=== PATIENT | male | born 1940 | race Caucasian/White ===

== ENCOUNTER 2016-11-16 12:39 | Observation (INO) | payer MEDICARE ==
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
[2016-11-16] MEDS ORDERED: LORazepam 2 MG/ML SYRINGE IV STA (14:03)
[2016-11-16 15:13] LABS: Anisocytosis Slight; Aty Lym Flag Slight; CH 32.6; HCT 29.4 % (39.0-53.0); HDW 3.16; HGB 9.3 gm/dL (13.0-17.5); Hypochromasia Moderate; MCH 33.4 pg (25.0-35.0); MCHC 31.5 g/dL (31.0-37.0); Macrocytosis Marked; Mean Platelet Volume 7.6; RBC 2.78 m/uL (4.30-5.90); RDW 17.6 % (11.5-15.5); WBC 10.5 k/uL (3.8-10.6); WBC (Perox) 10.75
[2016-11-16 15:19] LABS: INR 1.2 (<1.2); Prothrombin Time 11.8 sec (9.0-12.0)
[2016-11-16 15:21] LABS: Calcium 9.5 mg/dL (8.4-10.2); Magnesium 2.1 mg/dL (1.6-2.3); Phosphorous 4.8 mg/dL (2.5-4.5); Potassium 4.1 mmol/L (3.5-5.1); Total Bilirubin 0.3 mg/dL (0.2-1.3); Total Protein 5.7 g/dL (6.3-8.2)
[2016-11-16] MEDS: SODIUM CHLORIDE 0.9% 1,000 ML IV STA ×2 (15:21→19:49)
[2016-11-16 15:34] LABS: Add Differential Manual Differential
[2016-11-16 15:39] LABS: Manual Review Performed; Nucleated Red Blood Cells 0 /100 WBC (0-0); Polychromasia Present; Total Cells Counted 100
[2016-11-16 15:43] LABS: Creatine Kinase 24 U/L (55-170)
[2016-11-16] MEDS ORDERED: DIAZEPAM 5 MG/ML 2 ML SYRINGE IVP PRN (15:55)
[2016-11-16] MEDS ORDERED: SODIUM CHLORIDE 0.9% 1,000 ML IV ONE (15:55)
[2016-11-16] MEDS ORDERED: DIAZEPAM 5 MG/ML 2 ML SYRINGE IVP STA (15:55)
[2016-11-16 15:56] LABS: Creatine Kinase MB 1.2 ng/mL (0.0-2.4); Troponin I <0.012 ng/mL (0.000-0.034)
[2016-11-16 21:20] LABS: Glucose,Whole Blood 95 mg/dL (75-99)
[2016-11-16 22:44] LABS: Amorphous Sediment,Urine Rare /hpf; Appearance,Urine Clear (Clear); Bacteria,Urine Moderate /hpf; Bilirubin,Urine Negative (Negative); Glucose,Urine (UA) Negative (Negative); Granular Casts,Urine 4 /lpf (0); Ketones,Urine Negative (Negative); Leukocyte Esterase,Urine Trace (Negative); Nitrite,Urine Negative (Negative); PH, Urine 5.5 (5.0-8.0); Particle Count 6623; Protein,Urine 2+ (Negative); Specific Gravity,Urine 1.016 (1.001-1.035); Squamous Epithelial Cell,Urine <1 /hpf (0-4); UA Billing (MACRO vs. MICRO) MICRO; Urobilinogen,Urine <2.0 mg/dL (<2.0); WBC,Urine 3 /hpf (0-5)
[2016-11-16] MEDS ORDERED: MIDODRINE 5 MG TAB PO PRN (23:45)
[2016-11-17 07:39] LABS: Glucose,Whole Blood 67 mg/dL (75-99)
[2016-11-17 08:00] LABS: Glucose,Whole Blood 87 mg/dL (75-99)
[2016-11-17 08:39] VITALS: BMI 27.3
[2016-11-17] MEDS ORDERED: GABAPENTIN 300 MG CAP PO SCH (09:00)
[2016-11-17] MEDS ORDERED: ENOXAPARIN 40 MG/0.4 ML SYRINGE SQ SCH (09:00)
[2016-11-17] MEDS: PANTOPRAZOLE 40 MG TABLET PO SCH (09:32)
[2016-11-17] MEDS: ASPIRIN 81 MG CHEW PO SCH (09:32)
[2016-11-17] MEDS: ENOXAPARIN 30 MG/0.3 ML SYRINGE SQ SCH (09:32)
[2016-11-17] MEDS: ISOSORBIDE MONONITRATE ER 30 MG TAB.ER.24H PO SCH (09:32)
[2016-11-17] MEDS: CLOPIDOGREL 75 MG TAB PO SCH (09:32)
[2016-11-17 09:34] LABS: Calcium 9.2 mg/dL (8.4-10.2); Potassium 4.9 mmol/L (3.5-5.1); Total Bilirubin 0.3 mg/dL (0.2-1.3); Total Protein 5.3 g/dL (6.3-8.2)
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
[2016-11-17 10:40] LABS: Anisocytosis Slight; Aty Lym Flag Slight; CH 32.7; CHCM 31.5; HCT 28.2 % (39.0-53.0); HDW 3.12; HGB 9.3 gm/dL (13.0-17.5); Hypochromasia Slight; MCH 34.4 pg (25.0-35.0); MCHC 32.9 g/dL (31.0-37.0); MCV 104.4 fL (80.0-100.0); Macrocytosis Moderate; RDW 17.8 % (11.5-15.5); WBC 10.2 k/uL (3.8-10.6); WBC (Perox) 10.45
[2016-11-17 11:30] LABS: Add Differential Manual Differential
[2016-11-17 11:44] LABS: Manual Review Performed; Nucleated Red Blood Cells 0 /100 WBC (0-0); Total Cells Counted 100
[2016-11-17] MEDS ORDERED: NON-FORMULARY DRUG (Ubidecarenone [Co Q-10] 400 MG) PO SCH (12:00)
[2016-11-17] MEDS ORDERED: PRASTERONE 50 MG PO SCH (12:00)
[2016-11-17 12:09] LABS: Glucose,Whole Blood 121 mg/dL (75-99)
[2016-11-17] MEDS: CHOLECALCIFEROL 1,000 UNIT TAB PO SCH (12:55)
[2016-11-17] MEDS ORDERED: DARBEPOETIN ALFA 40 MCG/0.4 ML SYRINGE SQ SCH (14:00)
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
[2016-11-17 14:47] LABS: % Iron Saturation 12.2 % (20-50)
[2016-11-17] MEDS ORDERED: HYDROcodone/APAP 10-325MG 1 EACH TAB PO PRN (16:49)
[2016-11-17] MEDS: PRAVASTATIN SODIUM 40 MG TAB PO SCH (17:01)
[2016-11-17 17:52] LABS: Glucose,Whole Blood 130 mg/dL (75-99)
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
[2016-11-17 21:12] LABS: Glucose,Whole Blood 87 mg/dL (75-99)
[2016-11-17] MEDS: NEBIVOLOL 5 MG TAB PO SCH (21:46)
[2016-11-17] MEDS: NIACIN TR 500 MG CAPSULE.ER PO SCH (21:46)
[2016-11-17] MEDS: SERTRALINE 100 MG TAB PO SCH (21:46)
[2016-11-18 03:05] LABS: Glucose,Whole Blood 59 mg/dL (75-99)
[2016-11-18 03:32] LABS: Glucose,Whole Blood 80 mg/dL (75-99)
[2016-11-18 03:50] LABS: Glucose,Whole Blood 93 mg/dL (75-99)
[2016-11-18 07:27] LABS: Glucose,Whole Blood 84 mg/dL (75-99)
[2016-11-18 09:14] LABS: Hepatitis B Surface Ag Index 0.06
[2016-11-18 09:32] LABS: Hepatitis B Surface Antibody Negative (Negative)
[2016-11-18] MEDS: ASPIRIN 81 MG CHEW PO SCH (10:06)
[2016-11-18] MEDS: ENOXAPARIN 30 MG/0.3 ML SYRINGE SQ SCH (10:06)
[2016-11-18] MEDS: ISOSORBIDE MONONITRATE ER 30 MG TAB.ER.24H PO SCH (10:07)
[2016-11-18] MEDS: PANTOPRAZOLE 40 MG TABLET PO SCH (10:07)
[2016-11-18] MEDS: CLOPIDOGREL 75 MG TAB PO SCH (10:08)
--- NOTE | 2016-11-18 11:34 | P.PN ---
Subjective Patient seen in follow-up for end-stage renal disease. He is maintained on hemodialysis on a Wednesday schedule via right chest permacath. He has a maturing right upper extremity AV fistula. Patient presented with tremors. Patient is still quite confused. He is currently undergoing hemodialysis. Denies chest pain or shortness of breath. Vital signs are stable. General: The patient appeared well nourished and normally developed. HEENT: Head exam is unremarkable. Neck is without jugular venous distension. LUNGS: Lungs are clear to auscultation and percussion. Breath sounds decreased. HEART: Rate and Rhythm are regular. First and second heart sounds normal. No murmurs, rubs or gallops. ABDOMEN: Abdominal exam reveals normal bowel sounds. Non-tender and non- distended. No evidence of peritonitis. EXTREMITITES: No clubbing, cyanosis, or edema. Objective - Vital Signs Vital signs: Vital Signs Temp 97.7 F 11/18/16 07:00 Pulse 89 11/18/16 07:00 Resp 16 11/18/16 07:00 BP 109/53 11/18/16 07:00 Pulse Ox 92 L 11/18/16 07:00 Intake & Output 11/17/16 11/18/16 11/18/16 18:59 06:59 18:59 Intake Total 240 Output Total 300 Balance -300 240 Weight 81.647 kg Intake: Oral 240 Output: Urine 300 Other: Voiding Method Urinal # Voids 1 # Bowel Movements 1 - Labs CBC & Chem 7: 11/17/16 08:27 11/17/16 08:27 Labs: Abnormal Lab Results - Last 24 Hours (Table) 11/17/16 11/17/16 11/17/16 Range/Units 08:27 08:30 11:52 Neutrophils # (Manual) 7.8 H (1.3-7.7) k/uL Lymphocytes # (Manual) 0.8 L (1.0-4.8) k/uL POC Glucose (mg/dL) 121 H (75-99) mg/dL Iron 25 L (49-181) ug/dL TIBC 205 L (261-462) ug/dL % Saturation 12.2 L (20-50) % 11/17/16 11/18/16 Range/Units 17:20 03:04 Neutrophils # (Manual) (1.3-7.7) k/uL Lymphocytes # (Manual) (1.0-4.8) k/uL POC Glucose (mg/dL) 130 H 59 L (75-99) mg/dL Iron (49-181) ug/dL TIBC (261-462) ug/dL % Saturation (20-50) % Microbiology - Last 24 Hours (Table) 11/16/16 14:50 Blood Culture - Preliminary Blood No Growth after 24 hours 11/16/16 21:19 Urine Culture - Preliminary Urine,Clean Catch Assessment and Plan Plan: Assessment: #1. End-stage renal disease maintained on hemodialysis on a Wednesday schedule via right chest permacath. He has a right upper extremity AV fistula which is currently maturing. #2. Tremors. Possibly related to Neurontin. Which has been discontinued. #3. Diabetes mellitus. #4. Anemia of chronic kidney disease. Iron deficiency noted. Plan: Hemodialysis today with goal 2-3 L ultrafiltration. Ferrlicit 125 mg IV daily for 3 days. First dose today. Maintain Aranesp. Neurology following. Follow-up EEG and CAT scan results.
[2016-11-18 11:56] LABS: Glucose,Whole Blood 79 mg/dL (75-99)
[2016-11-18] MEDS: CHOLECALCIFEROL 1,000 UNIT TAB PO SCH (12:08)
--- NOTE | 2016-11-18 12:09 | CONS ---
DATE OF SERVICE: 11/17/2016 REASON FOR CONSULTATION: 1. Urinary tract infection. 2. Lumbar spine wound. HISTORY OF PRESENT ILLNESS: The patient is a 75 year old male with past medical history significant for a surgery of his lumbosacral spine at the [facility]. The patient did have slight dehiscence of the wound for which the patient was taken back to the OR and did have restitching of the wound. However, wound opened up again and hence the patient is currently being treated with wound VAC. Per the , there was no evidence of any infection and the patient has not been on any antibiotic therapy. The patient also having problems with renal failure for which the patient was started on hemodialysis. The patient has been sent to the [facility] ER from dialysis. Apparently the patient was having tremor. At that time, the patient was unable to sit still. The patient also noticed to have some low blood pressure and fatigue but no high grade fever,rigors or chills. With these symptoms, the patient was evaluated by the ER physician. The patient did not have any fever since the patient has been admitted to the hospital and the patient did have a normal white count. The patient has been complaining of burning of urine. Though even he is a dialysis patient, however, I mentioned that he is still being urinating about 2 to 3 L per shift. The patient did have a UA requested. He was started on Rocephin. I was asked to see the patient for further information regarding antibiotic therapy as well as wound to the sacral area. The patient denies any significant pain to the sacral wound area. The patient denies significant chest pain, no shortness of breath. No cough. No abdominal pain or any diarrhea. Review of systems is positive for weakness but no fever. EYES: No complaint. ENT: No complaint. Respiratory: No complaint. Cardiovascular: No complaint. Genitourinary: As per HPI. Gastrointestinal: No complaint. Musculoskeletal: As per HPI. Integumentary: No complaint. Psychological: No complaint. Endocrine: No complaint. Neurological: as per HPI. Past medical history significant for end stage renal disease, on dialysis, diabetes mellitus. 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 Past surgical history: Back surgery, heart catheterization and stent placement. Hernia repair. Bilateral knee replacement. SOCIAL HISTORY: No history of smoking, drinking or drug use. FAMILY HISTORY: No pertinent findings were noticed. ALLERGIES: noted. Medications currently include the patient is on: 1. [place]. 2. Aspirin. 3. Rocephin. 4. Vitamin D3. 5. Plavix. 6. Valium. 7. Lovenox. 8. Glucotrol. 9. Imdur. 11. Protonix. 12. Pravachol. 13. Zoloft. On examination, blood pressure is 129/54 with a pulse of 75. Temperature 97.5. He is 97% on room air. General description is an elderly male lying in bed in no distress. No tachypnea or accessory muscles of respiration use. HEENT: Examination shows slight pallor. No scleral icterus. Oral mucous membranes dry. NECK: Trachea is central. No thyromegaly. LUNGS: Unlabored breathing. Clear to auscultation anteriorly. No wheeze or crackles. HEART: S1, S2 regular rate and rhythm. ABDOMEN: Soft, no tenderness. No guarding or rigidity. EXTREMITIES: No edema of the feet. SKIN: No rash or mass palpable. MUSCULOSKELETAL: The patient did have a lumbar spine wound. however,the wound base looks clean with no evidence of any slough tissue. No significant surrounding erythema or any drainage. NEUROLOGICALLY: The patient is awake, alert and oriented times three. Mood and affect normal. LABS: Hemoglobin 11.3, white count 10.2 with a BUN 57, creatinine 6.29. Electrolytes have been normal. Urine with trace leukocyte esterase with moderate bacteremia. Blood and urine cultures currently pending. DIAGNOSTIC IMPRESSION AND PLAN: 1. The patient was admitted to the hospital for uncontrolled tremor while the patient was on dialysis. The patient did have actually hemodialysis after made a significant amount of urine with some burning though urine not significantly positive. Underlying mild urinary tract infection not entirely excluded. Likely from enteric gram negative pathogen. 2. Patient with lumbar spine wound, postsurgical. Clinically no evidence of cellulitis. PLAN: 1. Rocephin 1 gm IV piggyback to continue, while waiting for cultures to finalize. 2. Wound VAC to the lumbar spine wound with black foam continuous pressure wound 125mmhg to be changed Wednesday, and Wednesday. 3. We will follow up on his clinical condition and cultures to further adjust medications if needed. Thank you for this consultation. We will follow this patient along with you. JUAN
--- NOTE | 2016-11-18 12:40 | PN ---
SUBJECTIVE: This 75 year old white male with tremor was found to have UTI with urosepsis. He has been seen by neurologist, was started on Rocephin through the IV for urosepsis. He has been seen by Dr. Beck for end stage renal disease as well as Dr. Monterroso. Dr. Monterroso's diagosis is new onset tremors and myoclonus. He recommended hemodialysis, stopping Neurontin. Much better off Neurontin with jerking being improved, possibly due to renal failure. EEG was done and is pending. Vital signs are exmained. IV antibiotics have been started . Lungs are clear. Cardiovascular: S1, S2. PSYCH: Fair mood and affect. ASSESSMENT AND PLAN: 1. Tremors possibly due to Neurontin. 2. Diabetes mellitus and ( ) disease. 3. End stage renal disease, Wednesday, Wednesday, Wednesday, continue with dialysis. 4. Start Aranesp. 5. Neurontin has been discontinued. 6. Follow up in the next 24 to 48 hours. [facility]
[2016-11-18] MEDS ORDERED: ACETAMINOPHEN TAB 325 MG TAB PO PRN (15:36)
[2016-11-18] MEDS ORDERED: ACETAMINOPHEN TAB 500 MG TAB PO STA (15:36)
--- NOTE | 2016-11-18 16:11 | CT ---
EXAMINATION TYPE: CT brain wo con DATE OF EXAM: 11/18/2016 COMPARISON: NONE HISTORY: weakness, episodes of tremors and confusion CT DLP: 1012.7 mGycm Automated exposure control for dose reduction was used. FINDINGS: There are generalized changes of sulcal prominence and ventriculomegaly, compatible with atrophic jeni nge. There is diffuse periventricular white matter lucency, compatible with chronic white matter isch emic change. There is no acute focal lesion, mass effect or midline shift identified. I do not see ev idence of intracranial blood. There is mild mucoperiosteal thickening involving the ethmoid sinuses. Remainder of the paranasal sin uses and mastoids are clear. IMPRESSION: 1. NO ACUTE INTRACRANIAL ABNORMALITY. 2. ATROPHIC CHANGE. 3. CHRONIC WHITE MATTER ISCHEMIC CHANGE. 4. 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
[2016-11-18 16:56] LABS: Glucose,Whole Blood 185 mg/dL (75-99)
[2016-11-18] MEDS: PRAVASTATIN SODIUM 40 MG TAB PO SCH (17:49)
--- NOTE | 2016-11-18 17:55 | PN ---
DATE OF SERVICE: 11/18/2016 REASON FOR FOLLOWUP: UTI and a lumbar wound. INTERVAL HISTORY: The patient is afebrile. He is breathing comfortably. Still complaining of some urinary frequency, but no burning. No suprapubic or flank pain. Denies significant chest pain or shortness of breath or cough. On examination, blood pressure is 109/53 with a pulse of 89, temperature 97.7. He is 92% on room air. General description is an elderly male lying in bed in no distress. RESPIRATORY SYSTEM: Unlabored breathing. Clear to auscultation anteriorly. HEART: S1, S2. Regular rate and rhythm. ABDOMEN: Soft. No tenderness. Lumbar wound currently covered with a wound V.A.C. LABS: Hemoglobin 9.3 with a white count of 10.2. Cultures currently pending. DIAGNOSTIC IMPRESSION AND PLAN: 1. Patient with some urinary burning and frequency with concern about possible urinary tract infection. Currently covered with Rocephin. That will be continued while waiting for the culture to finalize. 2. Patient with lumbar wound, post surgical. Continue with the wound V.A.C. Family present at the bedside. Their questions were answered. JUAN
--- NOTE | 2016-11-18 19:46 | P.PN ---
Subjective This patient is a 75-year-old right-handed white male who was seen in neurology consultation yesterday for new onset of tremors and myoclonus. Patient has a history of end-stage renal disease and is undergoing hemodialysis 3 days a week. He did have hemodialysis today and his serum creatinine is 6.29. He is being followed by nephrology. Patient was having new onset of tremors felt to be secondary to possible use of Neurontin. Neurontin was discontinued yesterday. He still has some myoclonic-like twitching for which she is going to be further evaluated with a routine EEG tomorrow morning. He was sent for a computed tomography scan of the brain which reveals no evidence of acute stroke. There was chronic white matter ischemic changes and atrophy noted. Patient apparently seems to be doing better according to his in terms of the severity and degree of tremors. Once again his neurological examination yesterday indicated more of a mild clonus possibly due to his chronic end-stage renal disease and severe uropathy. Patient states that he has been noticing less myoclonic jerks and tremors today. He still does occasionally have a few of them. We will await review of his EEG which is planned to be done tomorrow morning and will give further recommendations. He does not demonstrate evidence of flapping tremors on examination yesterday or today. His mental status remains relatively stable. The patient does show evidence of fever today and has a temperature of 100.6. He is being followed by infectious disease. He does have mild urinary tract infection and is being placed on Rocephin for treatment. Patient is running a temperature today of 100.6. We will await further recommendations from infectious disease. He does have history of multiple back surgeries and apparently his wound is healed over well. We will await any further recommendations from infectious disease in regards to his fever noted today. His overall prognosis at this time remains guarded. We will continue close neurological follow-up with this patient during this admission. Objective - Vital Signs Vital signs: Vital Signs Temp 100.6 F H 11/18/16 15:00 Pulse 82 11/18/16 15:00 Resp 16 11/18/16 15:00 BP 105/58 11/18/16 15:00 Pulse Ox 95 11/18/16 15:00 Intake & Output 11/17/16 11/18/16 11/18/16 18:59 06:59 18:59 Intake Total 480 Output Total 300 Balance -300 480 Weight 81.647 kg Intake: Oral 480 Output: Urine 300 Other: Voiding Method Urinal Urinal # Voids 1 1 # Bowel Movements 1 0 - Exam Physical examination: PHYSICAL EXAMINATION: Patient is resting comfortably in bed. VITAL SIGNS: Blood pressure is [105/58]. Heart rate is [82]. Respiration is [16] . Temperature is [100.6]. HEENT: Head is atraumatic, neck is supple, there were no carotid bruits. CHEST: Lungs are clear to auscultation and percussion. CARDIAC: S1, S2 normal rate and rhythm. There is no murmur. ABDOMEN: Soft and nontender. Bowel sounds are present. EXTREMITIES: There is no pedal edema. Peripheral pulses are present. Neurological examination: Patient's neurological examination is unchanged from yesterday. - Labs CBC & Chem 7: 11/17/16 08:27 11/17/16 08:27 Labs: Abnormal Lab Results - Last 24 Hours (Table) 11/17/16 11/18/16 11/18/16 Range/Units 17:20 03:04 16:52 POC Glucose (mg/dL) 130 H 59 L 185 H (75-99) mg/dL Microbiology - Last 24 Hours (Table) 11/16/16 14:50 Blood Culture - Preliminary Blood No Growth after 48 hours 11/16/16 21:19 Urine Culture - Final Urine,Clean Catch Assessment and Plan (1) Myoclonus Status: Acute Code(s): G25.3 - MYOCLONUS (2) End stage renal disease Status: Acute Code(s): N18.6 - END STAGE RENAL DISEASE (3) Tremor Status: Acute Code(s): R25.1 - TREMOR, UNSPECIFIED Plan: This patient is a 75-year-old male who is being evaluated for symptoms of new onset tremors and myoclonus. Patient is scheduled to undergo EEG tomorrow morning which will be reviewed. He was sent for a computed tomography scan of the brain today which reveals no acute intracranial abnormality. There was some cortical atrophy and white matter ischemic changes noted. We reviewed the results of the CAT scan with the patient today. He did undergo hemodialysis today for end-stage renal disease. His last creatinine level was 6.29. We will continue close neurological follow-up in this patient. Doubt that he is having seizures but rather likely has some degree of myoclonus. We will review his EEG tomorrow and we'll give further recommendations. He is running a low- grade temperature today and should be followed up by infectious disease. He is currently on IV Rocephin for possible urinary tract infection. He also has a wound VAC for his recent back surgery which apparently remained stable. Continue close monitoring of his overall neurological status during this admission. His overall prognosis at this time remains guarded.
[2016-11-18 21:21] LABS: Glucose,Whole Blood 85 mg/dL (75-99)
[2016-11-18] MEDS: NIACIN TR 500 MG CAPSULE.ER PO SCH (21:48)
[2016-11-18] MEDS: SERTRALINE 100 MG TAB PO SCH (21:48)
[2016-11-18] MEDS: NEBIVOLOL 5 MG TAB PO SCH (21:48)
[2016-11-19 01:53] LABS: Glucose,Whole Blood 46 mg/dL (75-99)
[2016-11-19 02:07] LABS: Glucose,Whole Blood 60 mg/dL (75-99)
[2016-11-19 02:22] LABS: Glucose,Whole Blood 78 mg/dL (75-99)
[2016-11-19 04:54] LABS: Glucose,Whole Blood 104 mg/dL (75-99)
--- NOTE | 2016-11-19 07:50 | PN ---
SUBJECTIVE: This is a white male who was admitted to the hospital with tremors and confusion. He was found to have a UTI. He was started on IV Rocephin. He has also had a CAT scan of the brain today, which showed no strokes. No mass effect. Dr. Beck has got the patient on dialysis. He is improving in his tremor. His confusion is improving. Off Neurontin. CARDIOVASCULAR: S1 and S2. LUNGS: Clear. GI: Soft. HEMATOLOGY: Negative Homans. Hemoglobin is 9.3. BUN is 57. Creatinine is 6.29. Labs were reviewed. ASSESSMENT: 1. End-stage renal disease. 2. Tremor secondary to Neurontin ( ). 3. Urinary tract infection. 4. Diabetes mellitus. 5. Anemia. 6. Chronic kidney disease. Dialysis will be done today. ( ) IV for 3 days. Maintain Aranesp. EEG will be reviewed. Possible discharge home tomorrow ( ) tremors greatly improved with dialysis and treatment of UTI and being off Neurontin. MTDD
[2016-11-19] MEDS: ENOXAPARIN 30 MG/0.3 ML SYRINGE SQ SCH (08:27)
[2016-11-19] MEDS: CLOPIDOGREL 75 MG TAB PO SCH (08:27)
[2016-11-19] MEDS: ASPIRIN 81 MG CHEW PO SCH (08:27)
[2016-11-19] MEDS: ISOSORBIDE MONONITRATE ER 30 MG TAB.ER.24H PO SCH (08:28)
[2016-11-19] MEDS: PANTOPRAZOLE 40 MG TABLET PO SCH (08:28)
[2016-11-19 08:31] LABS: Glucose,Whole Blood 72 mg/dL (75-99)
[2016-11-19 09:22] LABS: Glucose,Whole Blood 121 mg/dL (75-99)
[2016-11-19] MEDS: SODIUM FERRIC GLUCONAT-SUCROSE 125 MG in SODIUM CHLORIDE 0.9% 100 ML IVPB SCH (09:37)
--- NOTE | 2016-11-19 10:27 | P.PN ---
Subjective Patient seen in follow-up for end-stage renal disease. He is maintained on hemodialysis on a Wednesday schedule via right chest permacath. He has a maturing right upper extremity AV fistula. Patient presented with tremors. Patient is still quite confused. Denies chest pain or shortness of breath. No active complaints at this time. Vital signs are stable. General: The patient appeared well nourished and normally developed. HEENT: Head exam is unremarkable. Neck is without jugular venous distension. LUNGS: Lungs are clear to auscultation and percussion. Breath sounds decreased. HEART: Rate and Rhythm are regular. First and second heart sounds normal. No murmurs, rubs or gallops. ABDOMEN: Abdominal exam reveals normal bowel sounds. Non-tender and non- distended. No evidence of peritonitis. EXTREMITITES: No clubbing, cyanosis, or edema. Objective - Vital Signs Vital signs: Vital Signs Temp 98.4 F 11/19/16 07:00 Pulse 84 11/19/16 07:00 Resp 18 11/19/16 07:00 BP 110/67 11/19/16 07:00 Pulse Ox 98 11/19/16 07:00 Intake & Output 11/18/16 11/19/16 11/19/16 18:59 06:59 18:59 Intake Total 530 Output Total 150 Balance 530 -150 Weight 83 kg Intake: Intake, IV Titration 50 Amount cefTRIAXone 1,000 mg In 50 Sodium Chloride 0.9% 50 ml @ 100 mls/hr IVPB Q24H [facility] Rx#:[id number] Oral 480 Output: Urine 150 Other: Voiding Method Urinal Urinal # Voids 1 1 # Bowel Movements 1 - Labs CBC & Chem 7: 11/17/16 08:27 11/17/16 08:27 Labs: Abnormal Lab Results - Last 24 Hours (Table) 11/18/16 11/19/16 11/19/16 Range/Units 16:52 01:49 02:04 POC Glucose (mg/dL) 185 H 46 L 60 L (75-99) mg/dL 11/19/16 11/19/16 11/19/16 Range/Units 04:51 08:26 09:21 POC Glucose (mg/dL) 104 H 72 L 121 H (75-99) mg/dL Microbiology - Last 24 Hours (Table) 11/16/16 14:50 Blood Culture - Preliminary Blood No Growth after 48 hours 11/16/16 21:19 Urine Culture - Final Urine,Clean Catch Assessment and Plan Plan: Assessment: #1. End-stage renal disease maintained on hemodialysis on a Wednesday schedule via right chest permacath. He has a right upper extremity AV fistula which is currently maturing. #2. Tremors. Possibly related to Neurontin, which has been discontinued. #3. Diabetes mellitus. #4. Anemia of chronic kidney disease. Iron deficiency noted. #5. Low-grade fever. Concern for UTI. Patient also has a lumbar wound with a wound VAC in place. Plan: Hemodialysis tomorrow with goal 2-3 L ultrafiltration. Ferrlicit 125 mg IV daily for 3 days. Second dose today. Maintain Aranesp. Neurology following. Follow-up EEG. CT brain negative. Antibiotics per infectious disease recommendations.
[2016-11-19 11:21] LABS: Anisocytosis Slight; Aty Lym Flag Slight; CH 33.1; CHCM 30.4; HCT 29.9 % (39.0-53.0); HDW 3.08; HGB 9.2 gm/dL (13.0-17.5); Hypochromasia Marked; MCH 33.9 pg (25.0-35.0); MCHC 30.9 g/dL (31.0-37.0); MCV 109.7 fL (80.0-100.0); Macrocytosis Marked; RBC 2.73 m/uL (4.30-5.90); RDW 18.2 % (11.5-15.5); WBC 6.5 k/uL (3.8-10.6); WBC (Perox) 6.71
[2016-11-19 12:20] LABS: Add Differential Manual Differential
[2016-11-19 12:21] LABS: Glucose,Whole Blood 109 mg/dL (75-99)
[2016-11-19 12:22] LABS: Manual Review Performed; Nucleated Red Blood Cells 0 /100 WBC (0-0); Total Cells Counted 100
[2016-11-19] MEDS: CHOLECALCIFEROL 1,000 UNIT TAB PO SCH (12:30)
[2016-11-19 12:32] LABS: Calcium 9.5 mg/dL (8.4-10.2); Total Bilirubin 0.3 mg/dL (0.2-1.3); Total Protein 5.5 g/dL (6.3-8.2)
--- NOTE | 2016-11-19 16:45 | P.PN ---
Subjective This patient is a 75-year-old right-handed white male who was seen in neurology consultation yesterday for new onset of tremors and myoclonus. Patient has a history of end-stage renal disease and is undergoing hemodialysis 3 days a week. He did have hemodialysis yesterday and his serum creatinine was 6.29. He is being followed by nephrology. Patient was having new onset of tremors felt to be secondary to possible use of Neurontin. Neurontin was discontinued yesterday. He still has some myoclonic-like twitching for which she is going to be further evaluated with a routine EEG today. EEG was completed today and was reviewed. EEG reveals severe slowing with no evidence of any epileptiform discharges. There was no myoclonic-like events noted during this entire EEG recording. He was sent for a computed tomography scan of the brain which reveals no evidence of acute stroke. There was chronic white matter ischemic changes and atrophy noted. Patient apparently seems to be doing better according to his in terms of the severity and degree of tremors. Once again his neurological examination yesterday indicated more of a myoclonus possibly due to his chronic end-stage renal disease and severe uropathy. Patient states that he has been noticing less myoclonic jerks and tremors today. He still does occasionally have a few of them. He does not demonstrate evidence of flapping tremors on examination yesterday or today. His mental status remains relatively stable. He is being followed by infectious disease. He does have mild urinary tract infection and is being placed on Rocephin for treatment. We will await further recommendations from infectious disease. He does have history of multiple back surgeries and apparently his wound is healed over well. We will await any further recommendations from infectious disease regarding any underlying sepsis. Patient's clinical condition is more consistent with a diffuse encephalopathy at this time. His overall prognosis at this time remains guarded. We will continue close neurological follow-up with this patient during this admission. Objective - Vital Signs Vital signs: Vital Signs Temp 98.4 F 11/19/16 07:00 Pulse 84 11/19/16 07:00 Resp 18 11/19/16 07:00 BP 110/67 11/19/16 07:00 Pulse Ox 98 11/19/16 07:00 Intake & Output 07/19/17 07/20/17 07/20/17 18:59 06:59 18:59 Intake Total 530 Output Total 150 Balance 530 -150 Weight 83 kg Intake: Intake, IV Titration 50 Amount cefTRIAXone 1,000 mg In 50 Sodium Chloride 0.9% 50 ml @ 100 mls/hr IVPB Q24H [facility] Rx#:[id number] Oral 480 Output: Urine 150 Other: Voiding Method Urinal Urinal # Voids 1 1 1 # Bowel Movements 1 - Exam Physical examination: PHYSICAL EXAMINATION: Patient is resting comfortably in bed. VITAL SIGNS: Blood pressure is [110/67]. Heart rate is [84]. Respiration is [18] . Temperature is [98.4]. HEENT: Head is atraumatic, neck is supple, there were no carotid bruits. CHEST: Lungs are clear to auscultation and percussion. CARDIAC: S1, S2 normal rate and rhythm. There is no murmur. ABDOMEN: Soft and nontender. Bowel sounds are present. EXTREMITIES: There is no pedal edema. Peripheral pulses are present. Neurological examination: Patient's neurological examination is unchanged from yesterday. Patient is slightly lethargic but easily arousable. He states he is feeling tired today. His memory and intellectual functions slightly impaired. - Labs CBC & Chem 7: 11/19/16 10:51 11/19/16 10:51 Labs: Abnormal Lab Results - Last 24 Hours (Table) 11/18/16 11/19/16 11/19/16 Range/Units 16:52 01:49 02:04 RBC (4.30-5.90) m/uL Hgb (13.0-17.5) gm/dL Hct (39.0-53.0) % MCV (80.0-100.0) fL MCHC (31.0-37.0) g/dL RDW (11.5-15.5) % Plt Count (150-450) k/uL BUN (9-20) mg/dL Creatinine (0.66-1.25) mg/dL Glucose (74-99) mg/dL POC Glucose (mg/dL) 185 H 46 L 60 L (75-99) mg/dL Total Protein (6.3-8.2) g/dL Albumin (3.5-5.0) g/dL 07/20/17 07/20/17 07/20/17 Range/Units 04:51 08:26 09:21 RBC (4.30-5.90) m/uL Hgb (13.0-17.5) gm/dL Hct (39.0-53.0) % MCV (80.0-100.0) fL MCHC (31.0-37.0) g/dL RDW (11.5-15.5) % Plt Count (150-450) k/uL BUN (9-20) mg/dL Creatinine (0.66-1.25) mg/dL Glucose (74-99) mg/dL POC Glucose (mg/dL) 104 H 72 L 121 H (75-99) mg/dL Total Protein (6.3-8.2) g/dL Albumin (3.5-5.0) g/dL 11/19/16 11/19/16 11/19/16 Range/Units 10:51 10:51 12:19 RBC 2.73 L (4.30-5.90) m/uL Hgb 9.2 L (13.0-17.5) gm/dL Hct 29.9 L (39.0-53.0) % MCV 109.7 H D (80.0-100.0) fL MCHC 30.9 L (31.0-37.0) g/dL RDW 18.2 H (11.5-15.5) % Plt Count 97 L (150-450) k/uL BUN 27 H (9-20) mg/dL Creatinine 3.54 H (0.66-1.25) mg/dL Glucose 122 H (74-99) mg/dL POC Glucose (mg/dL) 109 H (75-99) mg/dL Total Protein 5.5 L (6.3-8.2) g/dL Albumin 3.0 L (3.5-5.0) g/dL Microbiology - Last 24 Hours (Table) 11/16/16 14:50 Blood Culture - Preliminary Blood No Growth after 48 hours 11/16/16 21:19 Urine Culture - Final Urine,Clean Catch Assessment and Plan (1) Myoclonus Status: Acute Code(s): G25.3 - MYOCLONUS (2) End stage renal disease Status: Acute Code(s): N18.6 - END STAGE RENAL DISEASE (3) Tremor Status: Acute Code(s): R25.1 - TREMOR, UNSPECIFIED Plan: This patient is a 75-year-old male who is being evaluated for tremors and myoclonus. Patient appears to be lethargic today but easily arousable. He complains of extreme fatigue symptoms. He is afebrile today. He is being followed by infectious disease. He underwent hemodialysis yesterday and his creatinine today is come down to 3.54. Nephrology is following the patient. Patient underwent routine EEG today which was reviewed. There is no evidence of any epileptiform discharges or myoclonic jerks. EEG is diffusely slow consistent with a encephalopathy. We will continue to follow this patient closely during this admission. His overall prognosis at this time remains guarded.
[2016-11-19 17:01] LABS: Glucose,Whole Blood 116 mg/dL (75-99)
[2016-11-19] MEDS: PRAVASTATIN SODIUM 40 MG TAB PO SCH (17:10)
--- NOTE | 2016-11-19 20:08 | PN ---
DATE OF SERVICE: 11/19/2016 REASON FOR FOLLOWUP: 1. Possible UTI. 2. Lumbar wound. INTERVAL HISTORY: The patient is afebrile, has been breathing comfortably. The patient denies significant chest pain or shortness of breath or cough. No abdominal pain. His urinary symptoms have improved. No significant pain in the lumbar wound area. On examination, blood pressure is 110/67 with a pulse of 84, temperature 98.4. He is 98% on room air. General description is an elderly male lying in bed in no distress. RESPIRATORY SYSTEM: Unlabored breathing. Clear to auscultation anteriorly. HEART: S1, S2. Regular rate and rhythm. ABDOMEN: Soft. No tenderness. LABS: Hemoglobin is 9.2, white count of 6.5 with a BUN of 27, creatinine of 3.54. Blood culture negative. Urine culture so far negative. DIAGNOSTIC IMPRESSION AND PLAN: 1. Patient with some urinary symptoms of burning and a positive UA with concern about urinary tract infection. However, his urine culture is negative and remains negative. Antibiotic can be discontinued. 2. Patient with a lumbar wound, post surgical, with no evidence of any cellulitis. Recommend local wound care with wound V.A.C. Continue supportive care. JUAN
[2016-11-19] MEDS: SERTRALINE 100 MG TAB PO SCH (20:40)
[2016-11-19] MEDS: NEBIVOLOL 5 MG TAB PO SCH (20:41)
[2016-11-19] MEDS: NIACIN TR 500 MG CAPSULE.ER PO SCH (20:41)
[2016-11-19 20:57] LABS: Glucose,Whole Blood 119 mg/dL (75-99)
[2016-11-20 02:06] LABS: Glucose,Whole Blood 108 mg/dL (75-99)
--- NOTE | 2016-11-20 05:51 | EEG ---
DATE OF SERVICE: 11/19/2016 ELECTROENCEPHALOGRAPHIC EXAMINATION REPORT INDICATION FOR EXAMINATION: This patient is a 75-year-old male being evaluated for tremors and myoclonus. The patient has history of renal failure and is on hemodialysis. AGE: 75. EEG FINDINGS: A routine 21-channel awake, digital EEG recording was accomplished utilizing the 10-20 international system with bipolar and referential montages. The background activity in the most alert resting state consists of a low amplitude poorly developed and poorly sustained 4-5 Hz activity over the posterior head regions. This posterior rhythm attenuates to eye opening. There is a small amount of low amplitude 18-20 Hz beta activity seen maximally over the anterior head regions. Muscle and movement artifact was observed on a few occasions during the tracing. Hyperventilation was not performed. Photic stimulation at flash frequencies of 2 -30 Hz produced a minimal occipital driving response. No epileptiform discharges were seen. IMPRESSION: This EEG give evidence of a severe widespread diffuse disturbance in cerebral function. The EEG failed to reveal any focal, lateralized, or epileptiform abnormalities. If clinically indicated, a follow-up EEG is recommended. Clinical correlation is recommended. FRANCKD
[2016-11-20 07:22] LABS: Glucose,Whole Blood 136 mg/dL (75-99)
[2016-11-20 07:27] VITALS: RESP 18
[2016-11-20] MEDS: ASPIRIN 81 MG CHEW PO SCH (08:19)
[2016-11-20] MEDS: ENOXAPARIN 30 MG/0.3 ML SYRINGE SQ SCH (08:19)
[2016-11-20] MEDS: PANTOPRAZOLE 40 MG TABLET PO SCH (08:19)
[2016-11-20] MEDS: ISOSORBIDE MONONITRATE ER 30 MG TAB.ER.24H PO SCH (08:19)
[2016-11-20] MEDS: CLOPIDOGREL 75 MG TAB PO SCH (08:19)
--- NOTE | 2016-11-20 09:07 | P.PN ---
Subjective Patient seen in follow-up for end-stage renal disease. He is maintained on hemodialysis on a Wednesday schedule via right chest permacath. He has a maturing right upper extremity AV fistula. Patient presented with tremors. Patient is still quite confused. Denies chest pain or shortness of breath. No active complaints at this time. Tremors have improved. Patient noted to have dysuria however urine culture remains negative. Vital signs are stable. General: The patient appeared well nourished and normally developed. HEENT: Head exam is unremarkable. Neck is without jugular venous distension. LUNGS: Lungs are clear to auscultation and percussion. Breath sounds decreased. HEART: Rate and Rhythm are regular. First and second heart sounds normal. No murmurs, rubs or gallops. ABDOMEN: Abdominal exam reveals normal bowel sounds. Non-tender and non- distended. No evidence of peritonitis. EXTREMITITES: No clubbing, cyanosis, or edema. Objective - Vital Signs Vital signs: Vital Signs Temp 98.0 F 11/20/16 07:00 Pulse 82 11/20/16 07:00 Resp 18 11/20/16 07:00 BP 130/74 11/20/16 07:00 Pulse Ox 97 11/20/16 07:00 Intake & Output 11/19/16 11/20/16 11/20/16 18:59 06:59 18:59 Intake Total 900 Balance 900 Weight 82 kg Intake: Oral 900 Other: Voiding Method Urinal Urinal Incontinent # Voids 1 2 # Bowel Movements 1 1 - Labs CBC & Chem 7: 11/19/16 10:51 11/19/16 10:51 Labs: Abnormal Lab Results - Last 24 Hours (Table) 11/19/16 11/19/16 11/19/16 Range/Units 09:21 10:51 10:51 RBC 2.73 L (4.30-5.90) m/uL Hgb 9.2 L (13.0-17.5) gm/dL Hct 29.9 L (39.0-53.0) % MCV 109.7 H D (80.0-100.0) fL MCHC 30.9 L (31.0-37.0) g/dL RDW 18.2 H (11.5-15.5) % Plt Count 97 L (150-450) k/uL BUN 27 H (9-20) mg/dL Creatinine 3.54 H (0.66-1.25) mg/dL Glucose 122 H (74-99) mg/dL POC Glucose (mg/dL) 121 H (75-99) mg/dL Total Protein 5.5 L (6.3-8.2) g/dL Albumin 3.0 L (3.5-5.0) g/dL 11/19/16 11/19/16 11/19/16 Range/Units 12:19 16:59 20:43 RBC (4.30-5.90) m/uL Hgb (13.0-17.5) gm/dL Hct (39.0-53.0) % MCV (80.0-100.0) fL MCHC (31.0-37.0) g/dL RDW (11.5-15.5) % Plt Count (150-450) k/uL BUN (9-20) mg/dL Creatinine (0.66-1.25) mg/dL Glucose (74-99) mg/dL POC Glucose (mg/dL) 109 H 116 H 119 H (75-99) mg/dL Total Protein (6.3-8.2) g/dL Albumin (3.5-5.0) g/dL 11/20/16 11/20/16 Range/Units 02:02 07:18 RBC (4.30-5.90) m/uL Hgb (13.0-17.5) gm/dL Hct (39.0-53.0) % MCV (80.0-100.0) fL MCHC (31.0-37.0) g/dL RDW (11.5-15.5) % Plt Count (150-450) k/uL BUN (9-20) mg/dL Creatinine (0.66-1.25) mg/dL Glucose (74-99) mg/dL POC Glucose (mg/dL) 108 H 136 H (75-99) mg/dL Total Protein (6.3-8.2) g/dL Albumin (3.5-5.0) g/dL Microbiology - Last 24 Hours (Table) 11/16/16 14:50 Blood Culture - Preliminary Blood No Growth after 72 hours Assessment and Plan Plan: Assessment: #1. End-stage renal disease maintained on hemodialysis on a Wednesday schedule via right chest permacath. He has a right upper extremity AV fistula which is currently maturing. #2. Tremors. Possibly related to Neurontin, which has been discontinued. #3. Diabetes mellitus. #4. Anemia of chronic kidney disease. Iron deficiency noted. #5. Low-grade fever. Concern for UTI. Patient also has a lumbar wound with a wound VAC in place. Plan: Hemodialysis today with goal 2-3 L ultrafiltration. Ferrlicit 125 mg IV daily for 3 days. Third dose today. Maintain Aranesp. Neurology following. No seizure-like activity noted on EEG. CT brain negative. Antibiotics per infectious disease recommendations. Cultures remain negative.
[2016-11-20] MEDS: SODIUM FERRIC GLUCONAT-SUCROSE 125 MG in SODIUM CHLORIDE 0.9% 100 ML IVPB SCH (09:48)
[2016-11-20] MEDS ORDERED: ONDANSETRON 4 MG/2 ML VIAL IVP PRN (10:32)
[2016-11-20 11:55] LABS: Glucose,Whole Blood 96 mg/dL (75-99)
[2016-11-20] MEDS: CHOLECALCIFEROL 1,000 UNIT TAB PO SCH (12:36)
[2016-11-20] MEDS ORDERED: HEPARIN SODIUM,PORCINE 5,000 UNIT/ML 1 ML VIAL ONE (15:00)
[2016-11-20 15:11] VITALS: BP 94/51; PULSE 74; TEMP 97.6
--- NOTE | 2016-11-20 15:27 | PN ---
DATE OF SERVICE: 11/19/2016 SUBJECTIVE: [id number] white male admitted with acute renal failure, UTI, metabolic encephalopathy and tremor. Patient remains on IV antibiotics. Tremor and renal failure are improved. Off Neurontin and with dialysis his metabolic encephalopathy is improving. We can get him up ambulating. CARDIOVASCULAR: S1, S2. LUNGS: Transmitted upper airway sounds. GI: Soft. HEMATOLOGIC: Negative Paul's. OPHTHALMOLOGIC: Pupils equal, round and reactive to light and accommodation. ASSESSMENT: 1. Metabolic encephalopathy. 2. Urinary tract infection. 3. Tremor. 4. Acute renal failure. Continue with IV antibiotics. Switch to oral in the morning. Discharge home tomorrow after dialysis. Continue with PT, OT. MTDD
[2016-11-20] MEDS ORDERED: PANTOPRAZOLE 40 MG TABLET PO SCH (17:30)
--- NOTE | 2016-11-20 17:32 | PN ---
DATE OF SERVICE: 11/20/2016 REASON FOR FOLLOWUP: 1. Possible UTI. 2. Lumbar spine wound. INTERVAL HISTORY: The patient is afebrile, has been breathing comfortably. Denies significant chest pain. No shortness of breath or cough. No abdominal pain or any diarrhea. On examination, blood pressure is 130/74 with a pulse of 82, temperature 98. He is 97% on room air. General description is an elderly male lying in bed in no distress. RESPIRATORY SYSTEM: Unlabored breathing. Clear to auscultation anteriorly. HEART: S1, S2. Regular rate and rhythm. ABDOMEN: Soft. No tenderness. LABS: No new labs obtained today. His urine culture is negative, blood culture so far negative. DIAGNOSTIC IMPRESSION AND PLAN: 1. Patient with urinary symptoms of some burning and frequency with positive UA and concern about urinary tract infection; however, urine culture has been negative, with possible mild cystitis. Rocephin can be safely discontinued. 2. Patient with lumbar spine pneumonia. To continue local wound care with wound V.A.C. and outpatient followup with his wound care physician. JUAN
--- NOTE | 2016-11-20 18:42 | P.PN ---
Subjective This patient is a 75-year-old right-handed white male who was seen in neurology consultation yesterday for new onset of tremors and myoclonus. Patient has a history of end-stage renal disease and is undergoing hemodialysis 3 days a week. He did have hemodialysis yesterday and his serum creatinine was 6.29. He is being followed by nephrology. Patient was having new onset of tremors felt to be secondary to possible use of Neurontin. Neurontin was discontinued yesterday. He still has some myoclonic-like twitching for which she is going to be further evaluated with a routine EEG today. EEG was completed today and was reviewed. EEG reveals severe slowing with no evidence of any epileptiform discharges. There was no myoclonic-like events noted during this entire EEG recording. He was sent for a computed tomography scan of the brain which reveals no evidence of acute stroke. There was chronic white matter ischemic changes and atrophy noted. Patient apparently seems to be doing better according to his in terms of the severity and degree of tremors. Once again his neurological examination yesterday indicated more of a myoclonus possibly due to his chronic end-stage renal disease and severe uropathy. Patient states that he has been noticing less myoclonic jerks and tremors today. He still does occasionally have a few of them. He does not demonstrate evidence of flapping tremors on examination yesterday or today. His mental status remains relatively stable. He is being followed by infectious disease. He does have mild urinary tract infection and is being placed on Rocephin for treatment. We will await further recommendations from infectious disease. He does have history of multiple back surgeries and apparently his wound is healed over well. We will await any further recommendations from infectious disease regarding any underlying sepsis. Patient is being evaluated for possible urinary tract infection. Urine culture did come back negative. He may have mild cystitis. He does have lumbar spine surgery with a wound VAC. He is to follow-up with his wound care physician soon after discharge. Patient's clinical condition is more consistent with a diffuse encephalopathy at this time. Patient is to be continued on hemodialysis 3 days a week via his chest permacath. Overall his tremors have improved but still may be related to his history of end-stage kidney disease. His overall prognosis at this time remains guarded. Patient may follow-up in the outpatient neurology clinic as needed. We will continue close neurological follow-up with this patient during this admission. Objective - Vital Signs Vital signs: Vital Signs Temp 98.0 F 11/20/16 07:00 Pulse 82 11/20/16 07:00 Resp 18 11/20/16 07:00 BP 130/74 11/20/16 07:00 Pulse Ox 97 11/20/16 07:00 Intake & Output 11/19/16 11/20/16 11/20/16 18:59 06:59 18:59 Intake Total 900 Balance 900 Weight 82 kg Intake: Oral 900 Other: Voiding Method Urinal Urinal Incontinent # Voids 1 2 # Bowel Movements 1 1 - Exam Physical examination: PHYSICAL EXAMINATION: Patient is resting comfortably in bed. VITAL SIGNS: Blood pressure is [94/51]. Heart rate is [74]. Respiration is [18] . Temperature is [97. 7]. HEENT: Head is atraumatic, neck is supple, there were no carotid bruits. CHEST: Lungs are clear to auscultation and percussion. CARDIAC: S1, S2 normal rate and rhythm. There is no murmur. ABDOMEN: Soft and nontender. Bowel sounds are present. EXTREMITIES: There is no pedal edema. Peripheral pulses are present. Neurological examination: Patient's neurological examination is unchanged from yesterday. Patient is slightly lethargic but easily arousable. He states he is feeling tired today. His memory and intellectual functions slightly impaired. - Labs CBC & Chem 7: 11/19/16 10:51 11/19/16 10:51 Labs: Abnormal Lab Results - Last 24 Hours (Table) 11/19/16 11/19/16 11/19/16 Range/Units 09:21 10:51 10:51 RBC 2.73 L (4.30-5.90) m/uL Hgb 9.2 L (13.0-17.5) gm/dL Hct 29.9 L (39.0-53.0) % MCV 109.7 H D (80.0-100.0) fL MCHC 30.9 L (31.0-37.0) g/dL RDW 18.2 H (11.5-15.5) % Plt Count 97 L (150-450) k/uL BUN 27 H (9-20) mg/dL Creatinine 3.54 H (0.66-1.25) mg/dL Glucose 122 H (74-99) mg/dL POC Glucose (mg/dL) 121 H (75-99) mg/dL Total Protein 5.5 L (6.3-8.2) g/dL Albumin 3.0 L (3.5-5.0) g/dL 11/19/16 11/19/16 11/19/16 Range/Units 12:19 16:59 20:43 RBC (4.30-5.90) m/uL Hgb (13.0-17.5) gm/dL Hct (39.0-53.0) % MCV (80.0-100.0) fL MCHC (31.0-37.0) g/dL RDW (11.5-15.5) % Plt Count (150-450) k/uL BUN (9-20) mg/dL Creatinine (0.66-1.25) mg/dL Glucose (74-99) mg/dL POC Glucose (mg/dL) 109 H 116 H 119 H (75-99) mg/dL Total Protein (6.3-8.2) g/dL Albumin (3.5-5.0) g/dL 11/20/16 11/20/16 Range/Units 02:02 07:18 RBC (4.30-5.90) m/uL Hgb (13.0-17.5) gm/dL Hct (39.0-53.0) % MCV (80.0-100.0) fL MCHC (31.0-37.0) g/dL RDW (11.5-15.5) % Plt Count (150-450) k/uL BUN (9-20) mg/dL Creatinine (0.66-1.25) mg/dL Glucose (74-99) mg/dL POC Glucose (mg/dL) 108 H 136 H (75-99) mg/dL Total Protein (6.3-8.2) g/dL Albumin (3.5-5.0) g/dL Microbiology - Last 24 Hours (Table) 11/16/16 14:50 Blood Culture - Preliminary Blood No Growth after 72 hours Assessment and Plan (1) Myoclonus Status: Acute Code(s): G25.3 - MYOCLONUS (2) End stage renal disease Status: Acute Code(s): N18.6 - END STAGE RENAL DISEASE (3) Tremor Status: Acute Code(s): R25.1 - TREMOR, UNSPECIFIED Plan: This patient is a 75-year-old male who is being evaluated for tremors and myoclonus. Patient appears to be lethargic today but easily arousable. He complains of extreme fatigue symptoms. He is afebrile today. He is being followed by infectious disease. He underwent hemodialysis yesterday and his creatinine today is come down to 3.54. Nephrology is following the patient. Patient underwent routine EEG today which was reviewed. There is no evidence of any epileptiform discharges or myoclonic jerks. EEG is diffusely slow consistent with a encephalopathy. This encephalopathy may be long-standing and related to his end-stage renal disease. This may be also long-term effect of his hemodialysis. Regardless his overall mental status remains relatively stable. He has been treated for possible urinary tract infection and cystitis. He is to be weaned off of his Rocephin today. Patient is being considered for discharge home and should follow-up with his wound care physician regarding his wound VAC for the his lumbar spine. We will continue to follow this patient closely during this admission. His overall prognosis at this time remains guarded. Patient may follow-up in the outpatient neurology clinic in 3- 4 weeks as needed.
--- NOTE | 2016-12-08 12:38 | DS ---
DATE OF ADMISSION: 11/16/2016 DATE OF DISCHARGE: 11/20/2016 HOME MEDICATIONS: 1. Co-enzyme Q 400 mg daily. 2. Vitamin D3 five thousand daily. 3. Niaspan 1000 mg daily. 4. Bystolic 5 mg daily. 5. Neurontin 300 t.i.d. 6. Isosorbide 30 mg daily. 7. Glipizide 5 mg a.c. breakfast. 8. Plavix 75 mg daily. 9. Zoloft 100 mg daily. 10. Protonix 40 mg daily. 11. Pravastatin 40 mg daily. 12. Midodrine 5 mg Wednesday, Wednesday, Wednesday. 13. Aspirin 81 mg daily. 14. Dhea 50 mg daily. 15. Vancleave 10-325 q.6 hours p.r.n. CONDITION: Stable. PROGNOSIS: Guarded. Ambulated as tolerated. This is a 76-year-old white male who was admitted with myoclonal recent tremors after hemodialysis. He was noticed to have some jerking. He has a history of diabetes mellitus, end-stage renal disease, possible seizure disorder. Seen by Neurology who cleared him for discharge after having dialysis. 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 Neurontin was stopped during his hospital stay and he was sent home in stable condition to follow up as an outpatient. JUAN
== END 2016-11-20 16:15 | disposition home health service (06) ==
LOC: EC 12:39 → INTOOBSV 15:55 → 4MS4W 15:55
PROVIDERS: ADMIT Family Medicine; ATTEND Family Medicine
DX: R25.1 Tremor, unspecified (principal); N39.0 Urinary tract infection, site not specified; N18.6 End stage renal disease; D63.1 Anemia in chronic kidney disease; N17.9 Acute kidney failure, unspecified; I95.9 Hypotension, unspecified; Z99.2 Dependence on renal dialysis; Z79.02 Long term (current) use of antithrombotics/antiplatelets; Z79.899 Other long term (current) drug therapy; E11.22 Type 2 diabetes mellitus with diabetic chronic kidney disease; Z95.5 Presence of coronary angioplasty implant and graft; Z96.653 Presence of artificial knee joint, bilateral; R35.0 Frequency of micturition; E61.1 Iron deficiency
CPT/HCPCS: 36415; 70450; 80053; 81001; 82550; 82553; 82728; 83540; 83550; 83735; 84100; 84443; 84484; 85025; 85610; 85730; 86704; 86706; 87040; 87086; 87340; 90935; 93005; 95819; 96361; 96365; 96366; 96367; 96372; 96375; 99285